=== PATIENT | female | born 1990 | race American Indian/Alaskan Native ===

== ENCOUNTER 2022-02-28 22:36 | Emergency (ER) | payer SELFPAY ==
[2022-02-28] MEDS ORDERED: ASPIRIN 325 MG TAB PO ONE (22:43)
--- NOTE | 2022-02-28 23:21 | XRay Report ---
XR chest routine 2V INDICATION / CLINICAL INFORMATION: chest pain. COMPARISON: None available. FINDINGS: SUPPORT DEVICES: None. HEART /PULMONARY VASCULATURE: No significant abnormality. LUNGS / PLEURA: No significant pulmonary or pleural abnormality. No pneumothorax. ADDITIONAL FINDINGS: No significant additional findings. IMPRESSION: 1. No acute findings. Signer Name: Chase Stapleton MD Signed: 02/28/2022 11:17 PM Workstation Name: [id number]
[2022-02-28 23:38] LABS: Basophils % (Auto) 0.4 % (0.0-1.8); Eosinophils # (Auto) 0.1 K/mm3 (0.0-0.4); Eosinophils % (Auto) 0.9 % (0.0-4.3); Hematocrit 38.4 % (30.3-42.9); Hemoglobin 12.4 gm/dl (10.1-14.3); Lymphocytes % (Auto) 23.5 % (13.4-35.0); Mean Corpuscular HGB Conc 32 % (30-34); Mean Corpuscular Volume 86 fl (79-97); Monocytes # (Auto) 0.6 K/mm3 (0.0-0.8); Platelet Count 192 K/mm3 (140-440); Red Blood Count 4.47 M/mm3 (3.65-5.03)
[2022-02-28 23:50] LABS: Alanine Aminotransferase 11 units/L (7-56); Albumin 4.5 g/dL (3.9-5); Blood Urea Nitrogen 12 mg/dL (7-17); Calcium 9.3 mg/dL (8.4-10.2); Hemolysis Index 5
[2022-02-28 23:52] LABS: BUN/Creatinine Ratio 17
--- NOTE | 2022-03-01 08:28 | Emergency Department Report ---
ED General Adult HPI - General Chief complaint: Chest Pain Stated complaint: CHEST PAIN Source: patient Mode of arrival: Ambulatory Limitations: No Limitations - History of Present Illness Initial comments: 31-year-old female presents to the ED complaining of chest pain x1 day. States that she has a history of anxiety. States that she has seen she has been seen prior at [place]. Patient has not been evaluated in the past a cardiology. Patient is alert and oriented x3. No acute distress noted. No ill appearance noted. Patient states chest pain at present time is a 2 out of 10. Denies any shortness of breath ,abdominal pain or nausea or vomiting. Worsens with: none Treatments Prior to Arrival: none - Related Data Allergies Allergy/AdvReac Type Severity Reaction Status Date / Time No Known Allergies Allergy Unverified 02/28/22 22:43 ED Review of Systems ROS: Stated complaint: CHEST PAIN Other details as noted in HPI Constitutional: denies: chills, fever Eyes: denies: eye pain, eye discharge, vision change ENT: denies: ear pain, throat pain Respiratory: denies: cough, shortness of breath, wheezing Cardiovascular: chest pain. denies: palpitations Endocrine: no symptoms reported Gastrointestinal: denies: abdominal pain, nausea, diarrhea Genitourinary: denies: urgency, dysuria, discharge Musculoskeletal: denies: back pain, joint swelling, arthralgia Skin: denies: rash, lesions Neurological: denies: headache, weakness, paresthesias Psychiatric: denies: anxiety, depression Hematological/Lymphatic: denies: easy bleeding, easy bruising ED Physical Exam - General Limitations: No Limitations General appearance: alert, in no apparent distress - Head Head exam: Present: atraumatic, normocephalic - Eye Eye exam: Present: normal appearance - ENT ENT exam: Present: mucous membranes moist - Neck Neck exam: Present: normal inspection - Respiratory Respiratory exam: Present: normal lung sounds bilaterally. Absent: respiratory distress - Cardiovascular Cardiovascular Exam: Present: regular rate, normal rhythm. Absent: systolic murmur, diastolic murmur, rubs, gallop - GI/Abdominal GI/Abdominal exam: Present: soft, normal bowel sounds - Extremities Exam Extremities exam: Present: normal inspection - Back Exam Back exam: Present: normal inspection - Neurological Exam Neurological exam: Present: alert, oriented X3 - Psychiatric Psychiatric exam: Present: normal affect, normal mood - Skin Skin exam: Present: warm, dry, intact, normal color. Absent: rash ED Course Vital Signs 03/01/22 08:30 Temperature 98.6 F Pulse Rate 75 Respiratory 16 Rate Blood Pressure 128/83 [Left] O2 Sat by Pulse 98 Oximetry ED Medical Decision Making - Lab Data Result diagrams: 02/28/22 22:58 02/28/22 22:58 - EKG Data Interpretation: normal EKG - Radiology Data [facility] [address] [place] [address] XRay Report Signed Patient: JANICE QUINTANA MR#: [id number] : 1990 Acct:[id number] Age/Sex: 31 / F ADM Date: 02/28/22 Loc: ED Attending Dr: Ordering Physician: AUTUMN PÉREZ MD Date of Service: 02/28/22 Procedure(s): XR chest routine 2V Accession Number(s): [id number] cc: ED MD ELISA Fluoro Time In Minutes: XR chest routine 2V INDICATION / CLINICAL INFORMATION: chest pain. COMPARISON: None available. FINDINGS: SUPPORT DEVICES: None. HEART /PULMONARY VASCULATURE: No significant abnormality. LUNGS / PLEURA: No significant pulmonary or pleural abnormality. No pneumothorax. ADDITIONAL FINDINGS: No significant additional findings. IMPRESSION: 1. No acute findings. Signer Name: Daisha Stapleton MD Signed: 02/28/2022 11:17 PM Workstation Name: [id number] Transcribed By: JS Dictated By: DAISHA STAPLETON MD Electronically Authenticated By: DAISHA STAPLETON MD Signed Date/Time: 02/28/222316 DD/ 16 TD/TT: Print Cancel - Medical Decision Making 31-year-old female presents to the ED complaining of chest pain x1 day. States that she has a history of anxiety. States that she has seen she has been seen prior at [place]. Patient has not been evaluated in the past a cardiology. Patient is alert and oriented x3. No acute distress noted. No ill appearance noted. Patient states chest pain at present time is a 2 out of 10. Denies any shortness of breath ,abdominal pain or nausea or vomiting. Physical examination is unremarkable. No pertinent lab Laboratory Results - last 24 hr 0502/28/22 03/01/22 22:58 22:58 01:28 WBC 8.5 RBC 4.47 Hgb 12.4 Hct 38.4 MCV 86 MCH 28 MCHC 32 RDW 14.0 Plt Count 192 Lymph % (Auto) 23.5 [place] % (Auto) 7.0 Eos % (Auto) 0.9 Baso % (Auto) 0.4 Lymph # (Auto) 2.0 [place] # (Auto) 0.6 Eos # (Auto) 0.1 Baso # (Auto) 0.0 Seg Neutrophils % 68.2 Seg Neutrophils # 5.8 Sodium 138 Potassium 3.5 L Chloride 101.9 Carbon Dioxide 22 Anion Gap 18 BUN 12 Creatinine 0.7 Estimated GFR > 60 BUN/Creatinine Ratio 17 Glucose 108 H Calcium 9.3 Total Bilirubin < 0.20 AST 19 ALT 11 Alkaline Phosphatase 53 Troponin T < 0.010 < 0.010 Total Protein 7.8 Albumin 4.5 Albumin/Globulin Ratio 1.4 03/01/22 04:36 WBC RBC Hgb Hct MCV MCH MCHC RDW Plt Count Lymph % (Auto) [place] % (Auto) Eos % (Auto) Baso % (Auto) Lymph # (Auto) [place] # (Auto) Eos # (Auto) Baso # (Auto) Seg Neutrophils % Seg Neutrophils # Sodium Potassium Chloride Carbon Dioxide Anion Gap BUN Creatinine Estimated GFR BUN/Creatinine Ratio Glucose Calcium Total Bilirubin AST ALT Alkaline Phosphatase Troponin T < 0.010 Total Protein Albumin Albumin/Globulin Ratio Critical care attestation.: If time is entered above; I have spent that time in minutes in the direct care of this critically ill patient, excluding procedure time. ED Disposition Clinical Impression: Chest pain Qualifiers: Chest pain type: other chest pain Qualified Code(s): R07.89 - Other chest pain Disposition: HOME / SELF CARE / HOMELESS Is pt being admited?: No Does the pt Need Aspirin: No Condition: Stable Instructions: Nonspecific Chest Pain, Adult Additional Instructions: Follow-up with [facility] Return to ED for any worsening symptom Referrals: KY COSTELLO MD [Staff Physician] - 3-5 Days Forms: Work/School Release Form(ED) Time of Disposition: 08:27
[2022-03-01 08:31] VITALS: BP 128/83
--- NOTE | 2022-03-01 10:14 | Electrocardiograph Report ---
[facility] Test Date: 2022-02-28 Test Time: 22:49:52 Pat Name: JANICE QUINTANA Department: Room: Gender: F [employer] It: FRANK : 1990 Requested By: ED DOC Order Number: [id number] Reading MD: Lyle Licona Measurements Intervals [place] Rate: 74 P: 77 RI: 178 QRS: 74 QRSD: 92 T: 21 QT: 378 QTc: 419 Interpretive Statements Sinus rhythm No previous ECG available for comparison Electronically Signed On 03-01-2022 10:13:53 EDT by Lyle Licona
== END 2022-03-01 09:09 | disposition home or self-care (01) ==
LOC: ED 22:36
DX: R07.9 Chest pain, unspecified (principal)
CPT/HCPCS: 36415; 71046; 80053; 84484; 85025; 93005; 99283